=== PATIENT | male | born 1970 | race Caucasian/White ===

== ENCOUNTER → 2021-06-06 12:20 | Outpatient (CLI) | payer OTHER, SELFPAY ==
--- NOTE | 2021-06-06 | DI.MRI.S_ITS ---
PROCEDURE: MR ANKLE LT WO CON INDICATIONS: LEFT ANKLE PAIN TECHNIQUE: Noncontrast sagittal T1 spin echo and T2 fast spin echo with fat saturation, axial proton density fast spin echo and T2 fast spin echo with fat saturation, coronal T1 spin echo and T2 fast spin echo with fat saturation through the ankle/hindfoot. COMPARISON: None. FINDINGS: Image quality: Excellent. Bones and joints: Marrow edema involving posterior calcaneus at distal Achilles tendon insertion is seen without discrete fracture line. No other area of abnormal marrow signal. No fracture or dislocation. No hindfoot coalitions. No osteochondral injuries of the talar dome. No pathologic joint effusions. Medial structures: The posterior tibialis, flexor digitorum longus, and flexor hallucis longus tendons are intact. The posterior tibial neurovascular bundle appears normal within the tarsal tunnel, without extrinsic mass effect. The deep layer (anterior and posterior tibiotalar ligaments) and superficial layer (tibionavicular, tibiospring, and tibiocalcaneal ligaments) of the deltoid ligament appear normal. The spring ligament components (superomedial calcaneonavicular, medioplantar oblique calcaneonavicular, and inferoplantar longitudinal ligaments) are intact. Lateral structures: The anterior talofibular, calcaneofibular, and posterior talofibular ligaments appear intact. More superiorly, the anterior and posterior tibiofibular ligaments appear intact, as is the intermalleolar ligament. The tibiofibular syndesmosis is normal in width at 2 mm or less. The peroneus longus and brevis tendons demonstrate normal location and morphology. Adjacent bony peroneal tubercle and retrotrochlear prominence are normal in size. The sinus tarsi demonstrates normal fatty signal, without edema, fibrosis, or cyst formation. Visualized sinus tarsi components (cervical ligament, interosseous talocalcaneal ligament, roots of the inferior extensor retinaculum) appear normal. The calcaneonavicular and calcaneocuboid components of the bifurcate ligament appear intact. The dorsal calcaneocuboid ligament appears intact. Anterior structures: The tibialis anterior, extensor hallucis longus, and extensor digitorum longus tendons appear intact. The dorsal talonavicular ligament appears intact. Posterior and plantar structures: Thickening of distal Achilles tendon at its posterior calcaneal insertion with surrounding soft tissue edema and low grade intrasubstance T2 hyperintense signal is seen. No full-thickness Achilles tendon rupture. Medial and lateral bands of the plantar fascia are of normal thickness. No abductor digiti quinti muscle atrophy to suggest Ramos neuropathy. IMPRESSION: 1. Suggestion of avulsion injury involving distal Achilles tendon at its insertion on posterior calcaneus with calcaneal marrow edema. No definite fracture line is seen. Thickened distal Achilles tendon with surrounding soft tissue edema suggestive of tendinosis and low-grade intrasubstance partial-thickness tear. No full-thickness Achilles tendon rupture. Plantar fascia is intact. 2. Rest of the ankle tendons and ligaments are intact. 3. No other area of abnormal marrow signal. No fracture or dislocation. Dictated by: Errol Park M.D. on 06/06/2021 at 14:21 Approved by: Errol Park M.D. on 06/06/2021 at 14:29
== END ==
PROVIDERS: PCP Physician Assistant Medical; Referring Provider Podiatrist; Visit Provider Podiatrist
DX: M25.572 Pain in left ankle and joints of left foot (principal); S86.002A Unspecified injury of left Achilles tendon, initial encounter; M76.62 Achilles tendinitis, left leg; R26.2 Difficulty in walking, not elsewhere classified
CPT/HCPCS: 73721